=== PATIENT | female | born 1980 | race Caucasian/White ===

== ENCOUNTER 2018-02-15 00:40 | Inpatient (IN) | payer MEDICAID ==
[2018-02-15] MEDS ORDERED: MISOPROSTOL 200 MCG TAB PR ×2 (01:00→04:00)
[2018-02-15] MEDS ORDERED: LIDOCAINE 1% (MPF) 30 ML INJ INJ (01:00)
[2018-02-15] MEDS ORDERED: METHYLERGONOVINE 0.2 MG INJ IM ×2 (01:00→04:00)
[2018-02-15] MEDS ORDERED: CARBOPROST 250 MCG INJ IM ×2 (01:00→04:00)
[2018-02-15] MEDS ORDERED: LACTATED RINGER'S 1,000 ML IV* (01:00)
[2018-02-15] MEDS ORDERED: IBUPROFEN 600 MG TAB PO (01:00)
[2018-02-15] MEDS ORDERED: BUTORPHANOL 2 MG INJ IV (01:00)
[2018-02-15] MEDS ORDERED: OXYTOCIN 30 UNITS/LR 500 ML IV ×2 (01:00→04:00)
[2018-02-15] MEDS: OXYTOCIN 30 UNITS/LR 500 ML IV ×2 (01:31→01:40)
[2018-02-15] MEDS: OXYCODONE/ACETAMINOPHEN (5/325) TAB PO (01:35)
[2018-02-15 02:30] LABS: ADD MAN DIFF? NO
[2018-02-15 02:36] LABS: WHITE BLOOD COUNT 15.1 10^3/ul (4.8-10.8)
[2018-02-15 02:36] LABS: BASOPHILS % 0.1 % (0.0-2.0); EOSINOPHILS % 0.2 % (0.0-7.0); HEMATOCRIT 34.2 % (37.0-47.0); HEMOGLOBIN 11.7 g/dl (12.0-16.0); LYMPHOCYTES # 1.1 10^3/ul (0.8-2.9); LYMPHOCYTES % 7.5 % (15.0-51.0); MEAN CORPUSCULAR HEMOGLOBIN 30.4 pg (29.0-33.0); MEAN CORPUSCULAR HGB CONC 34.2 g/dl (32.0-37.0); MEAN CORPUSCULAR VOLUME 88.8 fl (82.0-101.0); MEAN PLATELET VOLUME 10.2 fl (7.4-10.4); MONOCYTE # 0.6 10^3/ul (0.3-0.9); MONOCYTES % 4.2 % (0.0-11.0); NEUTROPHIL # 13.2 10^3/ul (1.6-7.5); NEUTROPHILS % 87.5 % (39.0-77.0); PLATELET COUNT 216 10^3/UL (140-415); RED BLOOD COUNT 3.85 10^6/ul (4.20-5.40); RED CELL DISTRIBUTION WIDTH 13.7 % (11.5-14.5)
[2018-02-15 02:48] LABS: INR 0.89; PARTIAL THROMBOPLASTIN TIME 26.1 Sec (25.0-35.0); PROTIME 12.1 Sec (11.9-14.9); PT RATIO 0.9
[2018-02-15 03:22] LABS: HEPATITIS B SURFACE ANTIGEN NEGATIVE (NEGATIVE)
[2018-02-15] MEDS: AMPICILLIN 2 GM/NS (PMX) 100 ML IV (03:30)
[2018-02-15] MEDS ORDERED: LANOLIN 7 GM TUBE TOP (04:00)
[2018-02-15] MEDS ORDERED: OXYCODONE/ASPIRIN (4.88/325) TAB PO (04:00)
[2018-02-15] MEDS ORDERED: ZOLPIDEM 5 MG TAB PO (04:00)
[2018-02-15 04:52] LABS: HIV 1&2 ANTIBODY NEGATIVE (NEGATIVE)
[2018-02-15] MEDS ORDERED: AMPICILLIN 1 GM/NS (PMX) 50 ML IV (05:00)
[2018-02-15] MEDS: CEFAZOLIN 2 GM/50 ML (PMX) 50 ML IVPB ×3 (05:35→22:00)
[2018-02-15] MEDS: WITCH HAZEL/GLYCERIN PAD PR (05:35)
[2018-02-15] MEDS: BENZOCAINE 20% 56 ML SPRAY TOP (05:36)
[2018-02-15] MEDS: IBUPROFEN 600 MG TAB PO ×4 (05:36→23:40)
[2018-02-15 05:53] LABS: AMPHETAMINE/METHAMPHETAMINE Negative (NEGATIVE); BARBITURATES Negative (NEGATIVE); BENZODIAZEPINES Negative (NEGATIVE); CANNABINOIDS Negative (NEGATIVE); COCAINE Negative (NEGATIVE); OPIATES Negative (NEGATIVE)
[2018-02-15] MEDS: SENNA/DOCUSATE NA (8.6MG/50MG) TAB PO ×2 (08:22→22:19)
[2018-02-15] MEDS: OXYCODONE/ASPIRIN (4.88/325) TAB PO (08:23)
[2018-02-15 15:05] LABS: RAPID PLASMA REAGIN NONREACTIVE (NR)
[2018-02-16] MEDS: IBUPROFEN 600 MG TAB PO ×3 (06:30→17:37)
[2018-02-16] MEDS: CEFAZOLIN 2 GM/50 ML (PMX) 50 ML IVPB ×3 (06:30→22:42)
[2018-02-16 08:21] LABS: ADD MAN DIFF? NO
[2018-02-16 08:24] LABS: WHITE BLOOD COUNT 8.2 10^3/ul (4.8-10.8)
[2018-02-16 08:24] LABS: BASOPHILS % 0.2 % (0.0-2.0); EOSINOPHILS # 0.2 10^3/ul (0.0-0.5); EOSINOPHILS % 2.6 % (0.0-7.0); LYMPHOCYTES # 1.8 10^3/ul (0.8-2.9); LYMPHOCYTES % 21.5 % (15.0-51.0); MEAN CORPUSCULAR HEMOGLOBIN 30.1 pg (29.0-33.0); MEAN CORPUSCULAR HGB CONC 33.3 g/dl (32.0-37.0); MEAN CORPUSCULAR VOLUME 90.4 fl (82.0-101.0); MEAN PLATELET VOLUME 10.3 fl (7.4-10.4); MONOCYTE # 0.5 10^3/ul (0.3-0.9); MONOCYTES % 6.1 % (0.0-11.0); NEUTROPHIL # 5.6 10^3/ul (1.6-7.5); NEUTROPHILS % 69.1 % (39.0-77.0); PLATELET COUNT 208 10^3/UL (140-415); RED BLOOD COUNT 3.65 10^6/ul (4.20-5.40); RED CELL DISTRIBUTION WIDTH 13.9 % (11.5-14.5)
[2018-02-16] MEDS: SENNA/DOCUSATE NA (8.6MG/50MG) TAB PO ×2 (08:54→22:42)
[2018-02-16 11:21] LABS: RUBELLA ANTIBODY - IGG 1.11 index
[2018-02-17] MEDS: IBUPROFEN 600 MG TAB PO ×4 (00:31→17:49)
[2018-02-17] MEDS: CEFAZOLIN 2 GM/50 ML (PMX) 50 ML IVPB ×2 (06:14→14:48)
[2018-02-17] MEDS: SENNA/DOCUSATE NA (8.6MG/50MG) TAB PO (09:43)
[2018-02-17] MEDS: DIPHTH/TET/ACEL PERTUSS (ADULT) 0.5 ML VIAL IM* (09:44)
[2018-02-19 11:16] LABS: RUBELLA ANTIBODY - IGM <20.00 AU/mL
== END 2018-02-17 19:05 | disposition home or self-care (01) | DRG 775 ==
LOC: OBT 00:40 → L-D 00:45 → PP1 03:10
PROVIDERS: Obstetrics & Gynecology
PROC: 10E0XZZ Delivery of Products of Conception, External Approach (ICD-10-PCS; principal; 2018-02-15)
PROC: 0HQ9XZZ Repair Perineum Skin, External Approach (ICD-10-PCS; 2018-02-15)
PROC: 3E0234Z Introduction of Serum, Toxoid and Vaccine into Muscle, Percutaneous Approach (ICD-10-PCS; 2018-02-15)
DX: O70.9 Perineal laceration during delivery, unspecified (principal); Z3A.39 39 weeks gestation of pregnancy; Z37.0 Single live birth; Z23 Encounter for immunization
CPT/HCPCS: 80307; 85025; 85610; 85730; 86592; 86703; 86762; 86850; 86900; 86901; 87340; 88307